=== PATIENT | female | born 1980 | race American Indian/Alaskan Native ===

== ENCOUNTER 2016-07-09 14:56 | Emergency (ER) | payer SELFPAY ==
[2016-07-09 15:25] VITALS: BP 106/65
[2016-07-09] MEDS ORDERED: MOTRIN PO ONE (16:09)
[2016-07-09] MEDS ORDERED: XYLOCAINE 1%/ EPI 1:100,000 INFILTRATI NR (17:00)
--- NOTE | 2016-07-09 17:06 | Emergency Department Report ---
Abscess Boil HPI - HPI Chief Complaint: Skin/Abscess/Foreign Body Stated Complaint: BOIL UNDER ARM Time Seen by Provider: 07/09/16 15:50 Duration: 3 Days Location: Upper Extremity History: Yes Pain, Yes Purulent Drainage (minor amount of purulent drainage from left axilla), Yes Previous History (history of recurrent abscesses), No Fever, No Numbness, No Foreign Body, No Insect Bite HPI: 35-year-old female past medical history recurrent axillary abscesses presents with 3-4 days of worsening left axillary abscess, mild drainage from abscess as per patient. Has 2 sites just underneath the left axilla that is swollen painful and slightly red. She states that she has had this drained multiple times and has scar tissue visible in left axilla secondary to previous incision and drainages. Patient denies any nausea vomiting fever or chills Home Medications: Previous Rx's Medication Instructions Recorded Last Taken Type Acetaminophen [Acetaminophen TAB] 500 mg PO Q6HR PRN #30 tablet 07/09/16 Unknown Rx Cephalexin [Keflex] 500 mg PO Q12HR #14 cap 07/09/16 Unknown Rx Sulfamethoxazole/Trimethoprim 1 each PO BID #14 tablet 07/09/16 Unknown Rx [Bactrim DS TAB] Allergies/Adverse Reactions: Allergies Allergy/AdvReac Type Severity Reaction Status Date / Time No Known Allergies Allergy Verified 07/09/16 15:16 ED Review of Systems ROS: Stated complaint: BOIL UNDER ARM Other details as noted in HPI Constitutional: denies: chills, fever Eyes: denies: eye pain, eye discharge, vision change ENT: denies: ear pain, throat pain Respiratory: denies: cough, shortness of breath, wheezing Cardiovascular: denies: chest pain, palpitations Endocrine: no symptoms reported Gastrointestinal: denies: abdominal pain, nausea, diarrhea Genitourinary: denies: urgency, dysuria, discharge Musculoskeletal: denies: back pain, joint swelling, arthralgia Skin: as per HPI, lesions (2 small abscesses left axilla region). denies: rash Neurological: denies: headache, weakness, paresthesias Psychiatric: denies: anxiety, depression Hematological/Lymphatic: denies: easy bleeding, easy bruising ED Past Medical Hx - Past Medical History Hx Asthma: Yes - Social History Smoking Status: Current Every Day Smoker Substance Use Type: Alcohol, Marijuana - Medications Home Medications: Home Medications Medication Instructions Recorded Confirmed Last Taken Type Acetaminophen [Acetaminophen TAB] 500 mg PO Q6HR PRN #30 tablet 07/09/16 Unknown Rx Cephalexin [Keflex] 500 mg PO Q12HR #14 cap 07/09/16 Unknown Rx Sulfamethoxazole/Trimethoprim 1 each PO BID #14 tablet 07/09/16 Unknown Rx [Bactrim DS TAB] ED Abscess Boil Physical Exam - Exam General: Vital signs noted. No distress. Alert and acting appropriately. Size: 2 cm Exam: Yes Tenderness, Yes Fluctuance, No Surrounding Cellulites/Erythema, No Lymphangitis, No Crepitation, No Heart Murmur, No Normal Neurologic Exam, No Normal Circulation Exam: 2 small abscesses approximately 1-2 cm in size with fluctuance underneath central portion. Tender to palpation. No significant cellulitis. I & D Note - I & D Note I & D Note: Both abscesses incised with 0.5 cm incisions. Minor amount of purulent drainage from both. Wound culture sent. Procedure tolerated well with minimal bleeding and minimal pain. Area infiltrated with lidocaine 1% with epinephrine. ED Course Vital Signs 07/09/16 15:17 Temperature 98.9 F Pulse Rate 76 Respiratory 16 Rate Blood Pressure 106/65 O2 Sat by Pulse 99 Oximetry Critical care attestation.: If time is entered above; I have spent that time in minutes in the direct care of this critically ill patient, excluding procedure time. ED Medical Decision Making - Medical Decision Making A/P: Abscess incision and drainage 1- I&D performed, purulent material draining from 2 small abscesses left axilla. Wound culture sent. Procedure tolerated well minimal bleeding and pain. 2-will place patient on Bactrim and Keflex as patient has had multiple recurrent abscesses and axilla. Tylenol when necessary for pain 3-advised patient to return to the ED if abscess re-accumulates if she experiences fever or chills or severe pain or bleeding from left axilla 4-follow up with primary care doctor ED Disposition Clinical Impression: Abscess Disposition: DISCHARGED TO HOME OR SELFCARE Is pt being admited?: No Does the pt Need Aspirin: No Condition: Stable Instructions: Abscess (ED), Abscess Incision and Drainage (ED) Prescriptions: Acetaminophen [Acetaminophen TAB] 500 mg PO Q6HR PRN #30 tablet PRN Reason: Pain Sulfamethoxazole/Trimethoprim [Bactrim DS TAB] 1 each PO BID #14 tablet Cephalexin [Keflex] 500 mg PO Q12HR #14 cap Referrals: PRIMARY CARE, [Primary Care Provider] - 3-5 Days [facility] [Outside] - 3-5 Days [facility] [Provider Group] - 3-5 Days Forms: Accompanied Note, Work/School Release Form(ED) Time of Disposition: 17:06
== END 2016-07-09 17:19 | disposition home or self-care (01) ==
LOC: ED 14:56
DX: L02.412 Cutaneous abscess of left axilla (principal); J45.909 Unspecified asthma, uncomplicated; F17.200 Nicotine dependence, unspecified, uncomplicated; F12.90 Cannabis use, unspecified, uncomplicated
CPT/HCPCS: 86403; 87076; 87116; 87186

== ENCOUNTER 2016-08-27 18:48 | Emergency (ER) | payer SELFPAY ==
[2016-08-27 20:51] LABS: Alanine Aminotransferase 41 units/L (7-56); Albumin 4.2 g/dL (3.9-5); Albumin/Globulin Ratio 1.4 %; Alkaline Phosphatase 64 units/L (35-129); Anion Gap 20 mmol/L; Bilirubin,Total 0.5 mg/dL (0.1-1.2); Blood Urea Nitrogen 10 mg/dL (7-17); Calcium 8.6 mg/dL (8.4-10.2); Carbon Dioxide 20 mmol/L (22-30); Chloride 102.5 mmol/L (98-107); Glucose 73 mg/dL (65-100); Lipase 13 units/L (13-60); Potassium 4.5 mmol/L (3.6-5.0); Sodium 138 mmol/L (137-145); Total Protein 7.1 g/dL (6.3-8.2)
[2016-08-27 20:59] LABS: Basophils % (Auto) 0.4 % (0.0-1.8); Eosinophils % (Auto) 0.8 % (0.0-4.3); Hematocrit 36.3 % (30.3-42.9); Mean Corpuscular HGB Conc 33 % (30-34); Mean Corpuscular Hemoglobin 30 pg (28-32); Mean Corpuscular Volume 91 fl (79-97); Platelet Count 219 K/mm3 (140-440); Red Cell Distribution Width 15.9 % (13.2-15.2); White Blood Count 15.9 K/mm3 (4.5-11.0)
[2016-08-27 21:28] LABS: Bacteria,Urine 1+ /HPF (Negative); Bilirubin,Urine NEG (Negative); Blood,Urine MOD (Negative); Ketones,Urine 20 mg/dL (Negative); Leukocyte Esterase,Urine LG (Negative); Nitrite,Urine NEG (Negative); Protein,Urine <15 mg/dL mg/dL (Negative); Urobilinogen,Urine < 2.0 mg/dL (<2.0)
[2016-08-28 00:38] VITALS: BP 146/42
--- NOTE | 2016-08-28 01:41 | Emergency Department Report ---
HPI - General Chief Complaint: Abdominal Pain Time Seen by Provider: 08/28/16 01:20 - HPI HPI: Room 17 The patient is a 35-year-old female presenting with a chief complaint of vaginal discharge. Patient states since last night she's had increased yellow vaginal discharge. Patient states she's had nausea but no vomiting. Patient denies abdominal pain but states she had some pressure. Patient denies dysuria or hematuria. Patient denies any history of fever. The patient states she also thinks she may have an ulcer because for the past several months she's had intermittent epigastric abdominal pain. Patient denies abdominal pain at this time Location: [see above] Duration: [see above] Quality: Pressure Severity: Currently 0/10 Modifying factors: [see above] Context: [see above] Mode of transportation: Unknown ED Past Medical Hx - Past Medical History Hx Asthma: Yes - Surgical History Additional Surgical History: Left ectopic treated with surgery - Family History Family history: no significant - Social History Smoking Status: Current Every Day Smoker (1/2 ppd) Substance Use Type: Alcohol (occ), Marijuana - Medications Home Medications: Home Medications Medication Instructions Recorded Confirmed Last Taken Type Acetaminophen [Acetaminophen TAB] 500 mg PO Q6HR PRN #30 tablet 07/09/16 Unknown Rx Cephalexin [Keflex] 500 mg PO Q12HR #14 cap 07/09/16 Unknown Rx Sulfamethoxazole/Trimethoprim 1 each PO BID #14 tablet 07/09/16 Unknown Rx [Bactrim DS TAB] Famotidine [Pepcid] 20 mg PO BID #20 tablet 08/28/16 Unknown Rx Sulfamethoxazole/Trimethoprim 1 each PO BID #14 tablet 08/28/16 Unknown Rx [Bactrim DS TAB] ED Review of Systems ROS: Stated complaint: ABD PAIN Other details as noted in HPI Comment: All other systems reviewed and negative Constitutional: fever Eyes: denies: eye pain, eye discharge, vision change ENT: denies: ear pain, throat pain Respiratory: denies: cough, shortness of breath, wheezing Cardiovascular: denies: chest pain, palpitations Endocrine: no symptoms reported Gastrointestinal: nausea. denies: abdominal pain, vomiting, diarrhea Genitourinary: denies: urgency, dysuria, discharge Musculoskeletal: denies: back pain, joint swelling, arthralgia Skin: denies: rash, lesions Neurological: denies: headache, weakness, paresthesias Psychiatric: denies: anxiety, depression Hematological/Lymphatic: denies: easy bleeding, easy bruising Physical Exam - Physical Exam Vital Signs: Vital Signs 08/27/16 08/28/16 19:30 00:38 Temperature 98.1 F Pulse Rate 80 77 Respiratory 18 16 Rate Blood Pressure 137/93 Blood Pressure 146/42 [Left] O2 Sat by Pulse 100 96 Oximetry Physical Exam: GENERAL: The patient is well-developed well-nourished female lying on stretcher not appearing to be in acute distress. [] HEENT: Normocephalic. Atraumatic. Extraocular motions are intact. Patient has moist mucous membranes. NECK: Supple. Trachea midline CHEST/LUNGS: Clear to auscultation. There is no respiratory distress noted. HEART/CARDIOVASCULAR: Regular. There is no tachycardia. There is no gallop rub or murmur. ABDOMEN: Abdomen is soft, nontender. Patient has normal bowel sounds. There is no abdominal distention. SKIN: There is no rash. There is no edema. There is no diaphoresis. NEURO: The patient is awake, alert, and oriented. The patient is cooperative. The patient has normal speech MUSCULOSKELETAL: There is no evidence of acute injury. PELVIC: Small to moderate amount of brownish vaginal discharge present in the vault. No cervical lesions visualized ED Course Vital Signs 08/27/16 08/28/16 19:30 00:38 Temperature 98.1 F Pulse Rate 80 77 Respiratory 18 16 Rate Blood Pressure 137/93 Blood Pressure 146/42 [Left] O2 Sat by Pulse 100 96 Oximetry ED Medical Decision Making - Lab Data Result diagrams: 08/27/16 19:59 08/27/16 19:59 Laboratory Tests 08/27/16 08/27/16 08/27/16 19:59 19:59 21:05 WBC 15.9 H RBC 4.00 Hgb 12.0 Hct 36.3 MCV 91 MCH 30 MCHC 33 RDW 15.9 H Plt Count 219 Lymph % (Auto) 10.[address] [place] % (Auto) 6.6 Eos % (Auto) 0.8 Baso % (Auto) 0.4 Lymph # 1.7 [place] # 1.1 H Eos # 0.1 Baso # 0.1 Seg Neutrophils % 81.5 H Seg Neutrophils # 13.0 H Sodium 138 Potassium 4.5 Chloride 102.5 Carbon Dioxide 20 L Anion Gap 20 BUN 10 Creatinine 0.8 Estimated GFR > 60 BUN/Creatinine Ratio 12.50 Glucose 73 Calcium 8.6 Total Bilirubin 0.5 AST 42 H ALT 41 Alkaline Phosphatase 64 Total Protein 7.1 Albumin 4.2 Albumin/Globulin Ratio 1.4 Lipase 13 Urine Color Yellow Urine Turbidity Clear Urine pH 5.0 Ur Specific [place] 1.015 Urine Protein <15 mg/dl Urine Glucose (UA) Neg Urine Ketones 20 Urine Blood Mod Urine Nitrite Neg Urine Bilirubin Neg Urine Urobilinogen < 2.0 Ur Leukocyte Esterase Lg Urine WBC (Auto) 40.0 H Urine RBC (Auto) 6.0 U Epithel Cells (Auto) 2.0 Urine Bacteria (Auto) 1+ Urine HCG, Qual Negative Wet prep-many PMNs, less than 20% loose cells, no yeast or Trichomonas - Differential Diagnosis urethritis, vaginitis, UTI Critical care attestation.: If time is entered above; I have spent that time in minutes in the direct care of this critically ill patient, excluding procedure time. ED Disposition Clinical Impression: UTI (urinary tract infection), Urethritis Disposition: DISCHARGED TO HOME OR SELFCARE Is pt being admited?: No Does the pt Need Aspirin: No Condition: Stable Instructions: Abdominal Pain (ED) Additional Instructions: Return to the emergency department immediately should you develop worsening symptoms, fever, inability to tolerate food or liquid or any other concerns. Prescriptions: Famotidine [Pepcid] 20 mg PO BID #20 tablet Sulfamethoxazole/Trimethoprim [Bactrim DS TAB] 1 each PO BID #14 tablet Referrals: [facility] [Outside] - 3-5 Days STEPHY GUTIERREZ MD [Staff Physician] - 3-5 Days (Dr. Gutierrez is a front line supervisor. Please follow up with him for further evaluation) Forms: STI Treatment and Prevention Time of Disposition: 03:03
[2016-08-28] MEDS ORDERED: ROCEPHIN IM ONE (03:02)
[2016-08-28] MEDS ORDERED: XYLOCAINE 1% MPF 5 mL INFILTRATI ONE (03:02)
[2016-08-28] MEDS ORDERED: ZITHROMAX PO ONE (03:02)
== END 2016-08-28 03:32 | disposition home or self-care (01) ==
LOC: ED 18:48
DX: N39.0 Urinary tract infection, site not specified (principal); N34.2 Other urethritis; J45.909 Unspecified asthma, uncomplicated; F17.200 Nicotine dependence, unspecified, uncomplicated
CPT/HCPCS: 36415; 80053; 81001; 81025; 83690; 85025; 87210; 87591; 96372; 99284; J0696

== ENCOUNTER 2017-03-26 12:32 | Emergency (ER) | payer SELFPAY ==
[2017-03-26] MEDS ORDERED: DUONEB *Not for PRN Use IH ONE ×2 (13:30→16:26)
[2017-03-26] MEDS ORDERED: PEPCID PO ONE (13:31)
[2017-03-26] MEDS ORDERED: ZITHROMAX PO ONE (13:31)
[2017-03-26] MEDS ORDERED: ROBITUSSIN DM PO ONE (13:31)
[2017-03-26] MEDS ORDERED: BABY ASPIRIN PO ONE (13:54)
[2017-03-26] MEDS ORDERED: NITROSTAT SL ONE (13:55)
[2017-03-26] MEDS ORDERED: NACL 0.9% 500 ML 500 ML IV ONE (13:56)
--- NOTE | 2017-03-26 13:58 | Emergency Department Report ---
ED Chest Pain HPI - General Chief Complaint: Upper Respiratory Infection Stated Complaint: CP Time Seen by Provider: 03/26/17 13:29 Source: patient, EMS Mode of arrival: Ambulatory Limitations: No Limitations - History of Present Illness Initial Comments: 36-year-old female past medical history smoker, marijuana use, asthma presents with sudden onset chest pain since approximately 9 AM this morning with substernal. Patient is awake alert and oriented 3 accompanied by significant other. Patient also states she has an ongoing cough for approximately 2 months with productive yellowish sputum. Patient denies history of angina or chest pain in the past. Patient denies fevers, chills, abdominal pain MD Complaint: chest pain - Related Data Previous Rx's Medication Instructions Recorded Last Taken Type Acetaminophen [Acetaminophen TAB] 500 mg PO Q6HR PRN #30 tablet 07/09/16 Unknown Rx Cephalexin [Keflex] 500 mg PO Q12HR #14 cap 07/09/16 Unknown Rx Sulfamethoxazole/Trimethoprim 1 each PO BID #14 tablet 07/09/16 Unknown Rx [Bactrim DS TAB] Famotidine [Pepcid] 20 mg PO BID #20 tablet 08/28/16 Unknown Rx Sulfamethoxazole/Trimethoprim 1 each PO BID #14 tablet 08/28/16 Unknown Rx [Bactrim DS TAB] ALBUTEROL Inhaler [ProAir HFA 2 puff IH QID PRN #1 inhalation 03/26/17 Unknown Rx Inhaler] Aspirin EC [Aspirin Enteric Coated 81 mg PO QDAY #30 tablet.dr 03/26/17 Unknown Rx TAB] Azithromycin [Zithromax TAB] 250 mg PO QDAY #4 tablet 03/26/17 Unknown Rx Naproxen 250 mg PO Q8H PRN #1 tablet 03/26/17 Unknown Rx Sulfamethoxazole/Trimethoprim 1 each PO BID #14 tablet 03/26/17 Unknown Rx [Bactrim DS TAB] predniSONE [Deltasone] 40 mg PO QDAY #10 tablet 03/26/17 Unknown Rx Allergies Allergy/AdvReac Type Severity Reaction Status Date / Time No Known Allergies Allergy Verified 07/09/16 15:16 Heart Score - HEART Score History: Slightly suspicious EKG: Normal Age: < 45 Risk factors: 1-2 risk factors Troponin: < normal limit HEART Score: 1 ED Review of Systems ROS: Stated complaint: CP Other details as noted in HPI ED Past Medical Hx - Past Medical History Previous Medical History?: Yes Hx Asthma: Yes - Surgical History Past Surgical History?: Yes Additional Surgical History: Left ectopic treated with surgery - Social History Smoking Status: Current Every Day Smoker Substance Use Type: Alcohol, Marijuana - Medications Home Medications: Home Medications Medication Instructions Recorded Confirmed Last Taken Type Acetaminophen [Acetaminophen TAB] 500 mg PO Q6HR PRN #30 tablet 07/09/16 Unknown Rx Cephalexin [Keflex] 500 mg PO Q12HR #14 cap 07/09/16 Unknown Rx Sulfamethoxazole/Trimethoprim 1 each PO BID #14 tablet 07/09/16 Unknown Rx [Bactrim DS TAB] Famotidine [Pepcid] 20 mg PO BID #20 tablet 08/28/16 Unknown Rx Sulfamethoxazole/Trimethoprim 1 each PO BID #14 tablet 08/28/16 Unknown Rx [Bactrim DS TAB] ALBUTEROL Inhaler [ProAir HFA 2 puff IH QID PRN #1 inhalation 03/26/17 Unknown Rx Inhaler] Aspirin EC [Aspirin Enteric Coated 81 mg PO QDAY #30 tablet.dr 03/26/17 Unknown Rx TAB] Azithromycin [Zithromax TAB] 250 mg PO QDAY #4 tablet 03/26/17 Unknown Rx Naproxen 250 mg PO Q8H PRN #1 tablet 03/26/17 Unknown Rx Sulfamethoxazole/Trimethoprim 1 each PO BID #14 tablet 03/26/17 Unknown Rx [Bactrim DS TAB] predniSONE [Deltasone] 40 mg PO QDAY #10 tablet 03/26/17 Unknown Rx ED Physical Exam - General Limitations: No Limitations ED Course Vital Signs 03/26/17 03/26/17 03/26/17 13:09 13:30 14:04 Temperature 98.6 F Pulse Rate 70 Pulse Rate [ 64 58 L Anterior Bilateral Throughout] Respiratory 18 Rate Respiratory 18 20 Rate [Anterior Bilateral Throughout] Blood Pressure 108/69 O2 Sat by Pulse 100 Oximetry 03/26/17 03/26/17 03/26/17 14:30 14:39 14:46 Temperature Pulse Rate 90 99 H 73 Pulse Rate [ Anterior Bilateral Throughout] Respiratory 12 17 Rate Respiratory Rate [Anterior Bilateral Throughout] Blood Pressure 115/80 161/119 O2 Sat by Pulse Oximetry 03/26/17 03/26/17 15:00 15:08 Temperature Pulse Rate 60 Pulse Rate [ Anterior Bilateral Throughout] Respiratory 15 18 Rate Respiratory Rate [Anterior Bilateral Throughout] Blood Pressure 121/69 O2 Sat by Pulse 98 Oximetry PABLO score - Pablo Score Age > 65: (0) No Aspirin use within the Past 7 Days: (0) No 3 or more CAD Risk Factors: (0) No 2 or more Angina events in past 24 hrs: (0) No Known CAD with more than 50% Stenosis: (0) No Elevated Cardiac Markers: (0) No ST Deviation Greater than 0.5mm: (0) No PABLO Score: 0 ED Medical Decision Making - Lab Data Result diagrams: 03/26/17 13:39 03/26/17 13:39 Critical care attestation.: If time is entered above; I have spent that time in minutes in the direct care of this critically ill patient, excluding procedure time. ED Disposition Clinical Impression: Chest pain in adult, Rhonchi Acute bronchitis Qualifiers: Bronchitis organism: unspecified organism Qualified Code(s): J20.9 - Acute bronchitis, unspecified Disposition: DC- TO HOME OR SELFCARE Is pt being admited?: No Does the pt Need Aspirin: No Condition: Stable Instructions: Acute Bronchitis (ED), Chest Pain (ED), Chronic Bronchitis (ED) Prescriptions: ALBUTEROL Inhaler [ProAir HFA Inhaler] 2 puff IH QID PRN #1 inhalation PRN Reason: Shortness Of Breath Aspirin EC [Aspirin Enteric Coated TAB] 81 mg PO QDAY #30 tablet. Azithromycin [Zithromax TAB] 250 mg PO QDAY #4 tablet Naproxen 250 mg PO Q8H PRN #1 tablet PRN Reason: Pain predniSONE [Deltasone] 40 mg PO QDAY #10 tablet Sulfamethoxazole/Trimethoprim [Bactrim DS TAB] 1 each PO BID #14 tablet Referrals: [facility] [Outside] - 3-5 Days SHEFALI WEST MD [Staff Physician] - 3-5 Days RONDA MONGE MD [Staff Physician] - 3-5 Days JANELL JOHN MD [Staff Physician] - 3-5 Days Forms: Work/School Release Form(ED), Accompanied Note Time of Disposition: 16:45
[2017-03-26 14:01] LABS: Basophils % (Auto) 0.5 % (0.0-1.8); Eosinophils % (Auto) 2.5 % (0.0-4.3); Hematocrit 39.3 % (30.3-42.9); Hemoglobin 13.4 gm/dl (10.1-14.3); Mean Corpuscular HGB Conc 34 % (30-34); Mean Corpuscular Hemoglobin 32 pg (28-32); Mean Corpuscular Volume 94 fl (79-97); Platelet Count 223 K/mm3 (140-440); Red Blood Count 4.19 M/mm3 (3.65-5.03); Red Cell Distribution Width 13.5 % (13.2-15.2); White Blood Count 13.4 K/mm3 (4.5-11.0)
[2017-03-26 14:29] LABS: Bacteria,Urine 1+ /HPF (Negative); Bilirubin,Urine NEG (Negative); Blood,Urine NEG (Negative); Ketones,Urine 20 mg/dL (Negative); Leukocyte Esterase,Urine NEG (Negative); Mucus,Urine FEW /HPF; Nitrite,Urine NEG (Negative); Protein,Urine <15 mg/dL mg/dL (Negative)
[2017-03-26 14:38] LABS: Anion Gap 19 mmol/L; BUN/Creatinine Ratio 14; Blood Urea Nitrogen 11 mg/dL (7-17); Calcium 9.1 mg/dL (8.4-10.2); Carbon Dioxide 22 mmol/L (22-30); Chloride 100.9 mmol/L (98-107); Glucose 83 mg/dL (65-100); Potassium 4.3 mmol/L (3.6-5.0); Sodium 138 mmol/L (137-145)
--- NOTE | 2017-03-26 15:14 | XRay Report ---
FINAL REPORT PROCEDURE: XR CHEST ROUTINE 2V TECHNIQUE: PA and lateral chest radiographs were obtained. CPT 25255 HISTORY: Shortness of breath COMPARISON: No prior studies are available for comparison. FINDINGS: Heart: Normal contour. Mediastinum/Vessels: Normal contour. Lungs/Pleural space: No infiltrate, effusion, or pneumothorax. Bony thorax: No acute osseous abnormality. Other: IMPRESSION: No pulmonary infiltrate.
[2017-03-26] MEDS ORDERED: NACL ONE (15:20)
--- NOTE | 2017-03-26 16:04 | Cat Scan Report ---
FINAL REPORT PROCEDURE: CT ANGIO CHEST TECHNIQUE: Computerized tomographic angiography of the chest was performed after the IV injection of iodinated nonionic contrast including image processing. The image data was postprocessed using 2-dimensional multiplanar reformatted (MPR) and 3-dimensional (MIP and/or volume rendered) techniques. HISTORY: + d-dimer, chest pain COMPARISON: No prior studies are available for comparison. FINDINGS: Prominent left thyroid lobe Heart and pericardium: Normal. Thoracic aorta: Normal. Pulmonary vasculature: Normal. Lymph nodes: No enlarged thoracic lymph nodes. Lungs: Normal. Pleural space: No effusion, thickening, or pneumothorax. Musculoskeletal structures: No significant abnormality. Upper abdominal structures: No significant abnormality. IMPRESSION: No evidence of pulmonary emboli. Prominent thyroid gland, not fully evaluated
[2017-03-26 17:33] VITALS: BP 123/68
== END 2017-03-26 17:31 | disposition home or self-care (01) ==
LOC: ED 12:32
DX: R07.2 Precordial pain (principal); J20.9 Acute bronchitis, unspecified; R09.89 Other specified symptoms and signs involving the circulatory and respiratory systems; J45.909 Unspecified asthma, uncomplicated; F12.10 Cannabis abuse, uncomplicated; F17.200 Nicotine dependence, unspecified, uncomplicated
CPT/HCPCS: 36415; 71020; 71275; 80048; 81001; 81025; 82805; 84484; 85025; 85379; 93005; 93010; 94640; 99285; J7040; Q9967